=== PATIENT | male | born 1985 | race Two or more races ===

== ENCOUNTER 2018-07-10 20:04 | Emergency (ER) | payer OTHER ==
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
[2018-07-10] MEDS ORDERED: Ketorolac 60 MG/2 ML SDV IM ONE (20:40)
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
== END 2018-07-10 22:10 | disposition home or self-care (01) ==
LOC: MW.ED 20:04
DX: M25.561 Pain in right knee (principal); M25.552 Pain in left hip; V89.2XXA Person injured in unspecified motor-vehicle accident, traffic, initial encounter
CPT/HCPCS: 72100; 73502; 73562; 81003; 96372; 99284; J1885; 99283